=== PATIENT | female | born 1995 | race African-American/Black ===

== ENCOUNTER 2019-08-07 00:55 | Emergency (ER) | payer MEDICAID ==
[~2019-08-07] VITALS: Ht 162.6 cm; Wt 83.9 kg
[~2019-08-07 00:55] MED LIST: BACTRIM-DS1 EA ORAL; CLOTRIMAZOLE-745 GM VG; NKM; ONDANSETRON ODT4 MG ORAL
[2019-08-07 01:10] VITALS: BP 156/106
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
[2019-08-07] MEDS ORDERED: HYDROcodone/Acetamin 5/325 tab ORAL ONE (01:15)
[2019-08-07] MEDS ORDERED: Tetanus/Diptheria/Pertussis IM ONE (01:15)
[2019-08-07] MEDS ORDERED: SILVADENE20 GM TP (01:29)
[2019-08-07] MEDS ORDERED: NORCO 5-325 TA1 EAC1 ORAL (01:29)
--- NOTE | 2019-08-07 01:40 | NUR ---
ED Nurse Note: Pt bilat LE wrapped and bandaged with ointment as ordered by ERMDejan.
[2019-08-07 01:55] VITALS: BP 145/99
--- NOTE | 2019-08-07 01:55 | NUR ---
ER DISCHARGE NOTE: Patient is cleared to be discharged per ERMD, pt is aox4, on room air, with stable vital signs. pt was given dc and prescription instructions, pt was able to verbalize understanding, pt id band removed. pt assisted into mother's vehicle via wheelchair by tech. pt took all belongings.
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
== END 2019-08-07 01:55 | disposition home or self-care (01) ==
LOC: EMR 01:18
DX: S90.821A Blister (nonthermal), right foot, initial encounter (principal); L53.9 Erythematous condition, unspecified; Z88.0 Allergy status to penicillin; X10.2XXA Contact with fats and cooking oils, initial encounter; Y92.9 Unspecified place or not applicable; Z23 Encounter for immunization
CPT/HCPCS: 90471; 90715; Z7502; 99283